=== PATIENT | female | born 2000 | race Caucasian/White ===

== ENCOUNTER 2020-06-21 11:12 | Outpatient (CLI) | payer BC, SELFPAY ==
[2020-06-23 18:10] LABS: SARS-CoV-2 RNA PCR Negative
== END 2020-06-21 11:13 | disposition home or self-care (01) ==
LOC: ANHCOVIDDT 11:16
PROVIDERS: PCP Family Medicine; Visit Provider Family Medicine
DX: Z20.822 Contact with and (suspected) exposure to COVID-19 (principal)
CPT/HCPCS: C9803; U0003; U0005